=== PATIENT | female | born 1960 | race Caucasian/White ===

== ENCOUNTER 2021-02-02 02:12 | Day surgery (SDC) | payer OTHER, SELFPAY ==
[2021-01-20 15:22] VITALS: BMI 29.0
--- NOTE | 2021-02-01 13:10 | WPDANESEPPF ---
Anes - Initial Pre Proc Eval Procedure: Operation Date: 02/02/21 10:00 Proposed Procedures p Screening Colonoscopy - Brent Buckley MD Date/Time: 02/01/21 13:10 Surgeon: Brent Buckley MD Pre Op Diagnosis: neoplasm screening Z12.11 Patient Data Age: 60 Gender: F Height: 1.7 m Weight: 84 kg Allergies Allergy/AdvReac Type Severity Reaction Status Date / Time No Known Allergies Allergy Unknown Verified 02/02/21 09:42 Home Medications Medication Instructions Recorded Confirmed Type aripiprazole 7.5 mg PO DAILY 01/20/21 01/20/21 History atorvastatin 20 mg PO DAILY 01/20/21 01/20/21 History duloxetine 60 mg PO DAILY 01/20/21 01/20/21 History glimepiride 4 mg PO BID 01/20/21 01/20/21 History metformin 1,000 mg PO BID 01/20/21 01/20/21 History oxybutynin chloride 5 mg PO BID 01/20/21 01/20/21 History sertraline 50 mg PO DAILY 01/20/21 01/20/21 History sitagliptin [Januvia] 100 mg PO DAILY 01/20/21 01/20/21 History Patient hx anesthesia problems: none Family hx anesthesia problems: none [facility] Past Medical History Medical History (Updated 02/01/21 @ 13:11 by Paulie Marrufo DO) Anxiety Depression Diabetes type 2, controlled Surgical History Surgical History (Updated 02/01/21 @ 13:11 by Paulie Marrufo DO) History of cervical spinal surgery History of cholecystectomy Social History Social History Smoking packs per day: 0.5 Smoking cigarettes per day: 10.0 Years smoked: 30 Smoking pack-years: 15.00 Smoking status: Former smoker Tobacco type: cigarettes Alcohol intake: never Substance use: never Substance use type: marijuana Other substance usage details: occasionally Living arrangements: with family Spiritual care concerns: No Anes - Eval Final PreProcedure Day of Procedure 02/01/21 13:10 Patient weight: overweight Heart: regular rate and rhythm Lungs: clear to auscultation and normal air movement Airway: Mallampati scale class II Neurological: alert and oriented Last oral intake: >/= 8 hours ASA classification: III Emergent: no Anesthetic plan: proceed Anesthesia type and monitoring: general GIVS and standard monitoring Informed Consent: The patient's anesthetic plan and its attendant risks and benefits were discussed with the patient/family/POA. Questions were solicited and answers provided to the satisfaction of the patient/family/POA.
[2021-02-02 09:46] VITALS: BP 158/73; PULSE 73; RESP 18; TEMP 37.2; O2SAT 100
--- NOTE | 2021-02-02 09:58 | WPDGICN ---
Assessment and Plan Assessment and plan (1) Encounter for screening colonoscopy: Code(s): Z12.11 - Encounter for screening for malignant neoplasm of colon Status: Acute Assessment and Plan: Patient presents for screening colonoscopy. Appears to be at average risk for colon polyps. GI Consult Note Consult date/time: 02/02/21 09:58 HPI: Becky Kirby is a 60 year old female Presents for screening colonoscopy. Patient reports that her weight appetite bowel movements are normal. She denies abdominal pain. She has had no bleeding. Her family history is noncontributory. Review of Systems Review of Systems: All systems reviewed & are unremarkable except as noted in HPI and below PMFSH Past Medical History Medical History (Updated 02/02/21 @ 09:59 by Brent Buckley MD) Anxiety Depression Diabetes type 2, controlled Surgical History Surgical History (Updated 02/01/21 @ 13:11 by Paulie Marrufo DO) History of cervical spinal surgery History of cholecystectomy Social History Social History Smoking packs per day: 0.5 Smoking cigarettes per day: 10.0 Years smoked: 30 Smoking pack-years: 15.00 Smoking status: Former smoker Tobacco type: cigarettes Alcohol intake: never Substance use: never Substance use type: marijuana Other substance usage details: occasionally Living arrangements: with family Spiritual care concerns: No Meds Home Medications and Allergies Home Medications Medication Instructions Recorded Confirmed Type aripiprazole 7.5 mg PO DAILY 01/20/21 01/20/21 History atorvastatin 20 mg PO DAILY 01/20/21 01/20/21 History duloxetine 60 mg PO DAILY 01/20/21 01/20/21 History glimepiride 4 mg PO BID 01/20/21 01/20/21 History metformin 1,000 mg PO BID 01/20/21 01/20/21 History oxybutynin chloride 5 mg PO BID 01/20/21 01/20/21 History sertraline 50 mg PO DAILY 01/20/21 01/20/21 History sitagliptin [Januvia] 100 mg PO DAILY 01/20/21 01/20/21 History Allergies Allergy/AdvReac Type Severity Reaction Status Date / Time No Known Allergies Allergy Unknown Verified 02/02/21 09:42 Vital Signs Vital Signs - 24 hr 02/02/21 09:46 Temperature 98.9 F Pulse Rate 73 Respiratory Rate 18 Blood Pressure 158/73 H Pulse Oximetry 100 Exam Narrative: Physical exam reveals patient be alert. Vital signs stable. HEENT exam is unremarkable. Patient is anicteric. Lungs are clear to auscultation and percussion. Heart is without murmur or extra sounds. Abdominal exam bowel sounds are present soft nontender with no organomegaly. Digital external rectal exam is normal.
[2021-02-02] MEDS: LACTATED RINGERS 1,000 ML 150 ML IV CONT (10:00)
[2021-02-02 10:04] LABS: Glucose Point of Care 269 mg/dl (65-105)
[2021-02-02 10:46] VITALS: BP 98/62; PULSE 90; RESP 18; O2SAT 100
[2021-02-02 10:56] VITALS: BP 110/67; PULSE 76; RESP 18; O2SAT 100
[2021-02-02 11:06] VITALS: BP 143/84; PULSE 88; RESP 20; O2SAT 100
== END 2021-02-02 11:18 | disposition home or self-care (01) ==
PROVIDERS: PCP Internal Medicine Gastroenterology; Visit Provider Internal Medicine Gastroenterology
PROC: 0DJD8ZZ Inspection of Lower Intestinal Tract, Via Natural or Artificial Opening Endoscopic (ICD-10-PCS; CPT 45378; principal; 2021-02-02 10:00)
DX: Z12.11 Encounter for screening for malignant neoplasm of colon (principal); D12.5 Benign neoplasm of sigmoid colon; K64.8 Other hemorrhoids; E11.9 Type 2 diabetes mellitus without complications; F32.9 Major depressive disorder, single episode, unspecified; F41.9 Anxiety disorder, unspecified; Z87.891 Personal history of nicotine dependence; Z90.49 Acquired absence of other specified parts of digestive tract
CPT/HCPCS: 45385; 82948; 88305; J2704; J7120

== ENCOUNTER 2024-06-03 12:52 | Outpatient (CLI) | payer MEDICARE, SELFPAY ==
--- NOTE | ~2024-06-03 | US_ITS ---
EXAMINATION: US thyroid DATE: 06/03/2024 13:18 INDICATION: Goiter TECHNIQUE: Multiple ultrasound images of the thyroid were obtained. COMPARISON: None. FINDINGS: The right thyroid lobe measures 5.1 x 0.9 x 1.8 cm. The left thyroid lobe measures 4.7 x 1.0 x 1.4 cm. The isthmus measures 0.3cm in anterior to posterior dimension. There is normal echotexture and echogenicity throughout the thyroid gland. No discrete nodules identi fied. Normal vascular flow is present. IMPRESSION: No abnormality within the thyroid gland, as detailed above. Reviewed, dictated and finalized at location A. [facility] [employer]
== END 2024-06-03 12:53 | disposition home or self-care (01) ==
PROVIDERS: PCP Family Medicine; Visit Provider Internal Medicine
DX: E04.9 Nontoxic goiter, unspecified (principal); E11.9 Type 2 diabetes mellitus without complications
CPT/HCPCS: 76536